=== PATIENT | female | born 1950 | race Caucasian/White ===

== ENCOUNTER → 2018-04-19 | Outpatient (CLI) | payer MEDICARE, OTHER ==
--- NOTE | 2018-04-19 12:26 | MR ---
EXAMINATION TYPE: MR abdomen wo/w con DATE OF EXAM: 04/19/2018 COMPARISON: NONE at this institution HISTORY: Neoplasm of uncertain behavior, adrenal. Abnormal outside CT CONTRAST: Standard multiplanar, multisequence MRI departmental protocol utilizing 8.5 mL intravenous Gadavist g adolinium contrast. FINDINGS: ADRENALS: There is nodularity or nodular thickening to right adrenal gland and thickening to left adr enal gland with more well-defined oval-shaped mass measuring 2.1 x 1.4 cm axial image 30 series 501. Both adrenal glands show diffuse signal dropout on in and out of phase imaging consistent with benign lipid rich adenomas and/or hyperplasia. OTHER: Visualized lung bases are clear. Small size hiatal hernia is present. The liver, gallbladder, pancreas, and spleen are normal in size and appear grossly unremarkable with exception of a few tiny thin-walled cysts scattered throughout the liver measuring under 4 mm in size. There is slightly dimi nished size to right kidney versus left kidney without worrisome mass or hydronephrosis. There is no suspicious small or large bowel dilatation. There is no concerning abdominal fluid collection. Visual ized osseous structures are intact. No greater than 1 cm abdominal adenopathy is seen. 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 No worrisome adrenal mas ses are identified on dynamic MRI.
== END | disposition home or self-care (01) ==
LOC: RADMRIMAIN 06:51 → MERGE 07:15
PROVIDERS: ATTEND Internal Medicine Hematology & Oncology
DX: D35.02 Benign neoplasm of left adrenal gland (principal); E27.8 Other specified disorders of adrenal gland
CPT/HCPCS: 74183; A9581